=== PATIENT | female | born 1970 | race African-American/Black ===

== ENCOUNTER 2019-10-16 16:04 | Inpatient (IN) | payer SELFPAY ==
[~2019-10-16] VITALS: Ht 157.5 cm; Wt 74.4 kg
[2019-10-16 17:51] LABS: CHLORIDE 110 mEq/L (98-107)
[2019-10-16 17:56] LABS: ETHANOL BLOOD < 10 mg/dL
[2019-10-16 17:57] LABS: LDL CHOLESTEROL 162 mg/dL (5-100)
[2019-10-16 18:05] LABS: INR 0.9; PROTHROMBIN TIME 10.1 sec (9.6-11.0)
[2019-10-16 18:13] LABS: BASOPHILS % 0.6 % (0.0-2.0); EOSINOPHILS % 0.5 % (0.0-5.0); HEMATOCRIT. 41.4 % (36.0-48.0); HEMOGLOBIN. 13.9 g/dL (12.0-16.0); LYMPHOCYTES % 30.6 % (20.0-50.0); MEAN CORPUSCULAR HEMOGLOBIN 28.8 pg (28.0-32.0); MEAN CORPUSCULAR VOLUME 85.4 fL (81.0-99.0); MEAN PLATELET VOLUME 8.5 fl (7.4-10.4); MONOCYTES % 4.9 % (2.0-8.0); NEUTROPHILS % 63.4 % (40.0-76.0); PLATELET 357 x1000/uL (130-400); RED BLOOD CELL COUNT 4.84 mill/uL (4.2-5.4); RED CELL DISTRIBUTION WIDTH 13.7 % (11.6-14.6)
[2019-10-16] MEDS ORDERED: IOHEXOL-350 100 ML BOTTLE ONE (18:41)
[2019-10-16] MEDS ORDERED: ACETAMINOPHEN 650MG/20.3ML UDC GT PRN ×2 (21:45)
[2019-10-16] MEDS ORDERED: ONDANSETRON HCL 4MG/2ML INJ IV PRN (21:45)
[2019-10-16] MEDS ORDERED: ACETAMINOPHEN 325MG TABLET PO PRN (21:45)
[2019-10-16] MEDS ORDERED: ACETAMINOPHEN 650MG SUPP PR PRN (21:45)
[2019-10-16] MEDS ORDERED: HYDROCODONE/ACETAMINOPHEN 5/325MG TABLET PO PRN (22:45)
[2019-10-16] MEDS ORDERED: KETOROLAC 30MG/ML VIAL IV PRN (22:45)
[2019-10-17] VITALS (7 sets, daily range): BP systolic 113–168; BP diastolic 65–89
[2019-10-17] MEDS ORDERED: CEPHALEXIN 250 MG/5 ML 100ML PO SCH
[2019-10-17] MEDS ORDERED: LOSA100T32 MT (02:49)
[2019-10-17 05:10] LABS: BASOPHILS % 0.5 % (0.0-2.0); EOSINOPHILS % 0.9 % (0.0-5.0); HEMOGLOBIN. 13.1 g/dL (12.0-16.0); LYMPHOCYTES % 36.4 % (20.0-50.0); MEAN CORPUSCULAR HEMOGLOBIN 28.4 pg (28.0-32.0); MEAN CORPUSCULAR VOLUME 86.6 fL (81.0-99.0); MEAN PLATELET VOLUME 8.8 fl (7.4-10.4); MONOCYTES % 5.6 % (2.0-8.0); NEUTROPHILS % 56.6 % (40.0-76.0); PLATELET 325 x1000/uL (130-400); RED BLOOD CELL COUNT 4.62 mill/uL (4.2-5.4); RED CELL DISTRIBUTION WIDTH 14.3 % (11.6-14.6)
[2019-10-17 05:21] LABS: CHLORIDE 109 mEq/L (98-107)
[2019-10-17 05:31] LABS: LDL CHOLESTEROL 149 mg/dL (5-100)
[2019-10-17 05:33] LABS: HDL CHOLESTEROL 35 mg/dL (40-59)
[2019-10-17] MEDS: AMLODIPINE 10MG TABLET PO SCH (05:44)
[2019-10-17] MEDS: SODIUM CHLORIDE 0.9% INJ 3ML FLUSH IVF SCH ×3 (05:44→21:33)
[2019-10-17] MEDS ORDERED: INFLUENZA VIRUS VACCINE(AFLURIA) 0.5ML SYR IM ONE (08:00)
[2019-10-17] MEDS ORDERED: ENOXAPARIN 40MG/0.4ML SYR SUBCUT SCH (09:00)
[2019-10-17] MEDS ORDERED: ASPIRIN 81MG EC TABLET PO SCH (09:00)
[2019-10-17 13:02] LABS: *AMPHETAMINES SCREEN URINE NEGATIVE (NEGATIVE); *BARBITURATES SCREEN URINE NEGATIVE (NEGATIVE); *BENZODIAZEPINES SCREEN URINE NEGATIVE (NEGATIVE); *COCAINE SCREEN URINE NEGATIVE (NEGATIVE); OPIATES URINE SCREEN NEGATIVE (NEGATIVE)
[2019-10-17 13:03] LABS: CANNABINOID URINE SCREEN NEGATIVE (NEGATIVE); PHENCYCLIDINE URINE SCREEN NEGATIVE (NEGATIVE)
[2019-10-17 13:39] LABS: CLARITY URINE CLOUDY (CLEAR); COLOR URINE YELLOW (YELLOW); KETONES URINE NEGATIVE (NEGATIVE); LEUKOCYTE ESTERASE URINE 2+ (NEGATIVE); NITRITE URINE NEGATIVE (NEGATIVE); OCCULT BLOOD URINE 1+ (NEGATIVE); PROTEIN URINE TRACE (NEGATIVE); SPECIFIC GRAVITY URINE 1.042 (1.005-1.030); UROBILINOGEN URINE 0.2 E.U./dL (0.2-1.0)
[2019-10-17] MEDS ORDERED: POTASSIUM CHLORIDE 20MEQ TABLET SR PO NR (16:45)
[2019-10-17 16:55] LABS: METHADONE URINE SCREEN NEGATIVE (NEGATIVE)
[2019-10-17] MEDS ORDERED: ATORVASTATIN CALCIUM 10MG TABLET PO SCH (21:00)
[2019-10-17] MEDS: LEVOFLOXACIN 500MG TABLET PO SCH (21:31)
[2019-10-17] MEDS: ATORVASTATIN CALCIUM 40MG TABLET PO SCH (21:31)
[2019-10-18] VITALS: BP 118/77
[2019-10-18 04:00] VITALS: BP 104/67
[2019-10-18] MEDS: SODIUM CHLORIDE 0.9% INJ 3ML FLUSH IVF SCH ×2 (06:01→21:39)
[2019-10-18 08:00] VITALS: BP 119/65
[2019-10-18] MEDS ORDERED: CEPHALEXIN 250 MG/5 ML 100ML PO SCH (09:00)
[2019-10-18 09:18] LABS: *AMPHETAMINES SCREEN URINE NEGATIVE (NEGATIVE); *BARBITURATES SCREEN URINE NEGATIVE (NEGATIVE); *BENZODIAZEPINES SCREEN URINE NEGATIVE (NEGATIVE); *COCAINE SCREEN URINE NEGATIVE (NEGATIVE); METHADONE URINE SCREEN NEGATIVE (NEGATIVE)
[2019-10-18 09:19] LABS: CANNABINOID URINE SCREEN NEGATIVE (NEGATIVE); OPIATES URINE SCREEN NEGATIVE (NEGATIVE); PHENCYCLIDINE URINE SCREEN NEGATIVE (NEGATIVE)
[2019-10-18] MEDS: AMLODIPINE 10MG TABLET PO SCH (09:51)
[2019-10-18] MEDS: LEVOFLOXACIN 500MG TABLET PO SCH (10:17)
[2019-10-18 11:12] LABS: BASOPHILS % 0.7 % (0.0-2.0); HEMATOCRIT. 39.7 % (36.0-48.0); HEMOGLOBIN. 13.5 g/dL (12.0-16.0); MEAN CORPUSCULAR HEMOGLOBIN 28.9 pg (28.0-32.0); MEAN CORPUSCULAR VOLUME 85.3 fL (81.0-99.0); MEAN PLATELET VOLUME 8.5 fl (7.4-10.4); MONOCYTES % 5.3 % (2.0-8.0); PLATELET 302 x1000/uL (130-400); RED BLOOD CELL COUNT 4.66 mill/uL (4.2-5.4); RED CELL DISTRIBUTION WIDTH 13.9 % (11.6-14.6)
[2019-10-18 11:26] LABS: CHLORIDE 109 mEq/L (98-107)
[2019-10-18 12:00] VITALS: BP 137/79
[2019-10-18 16:00] VITALS: BP 112/54
[2019-10-18 20:00] VITALS: BP 118/75
[2019-10-18] MEDS: ATORVASTATIN CALCIUM 40MG TABLET PO SCH (21:38)
[2019-10-19] VITALS: BP 104/58
[2019-10-19 04:00] VITALS: BP 104/48
[2019-10-19 08:00] VITALS: BP 100/53
[2019-10-19] MEDS ORDERED: SODIUM BICARBONATE 4% (2.4MEQ) 5ML VIAL IV ONE (09:30)
[2019-10-19] MEDS ORDERED: LIDOCAINE HCL 1% 20ML VIAL (Pyxis) INJ ONE (09:30)
[2019-10-19 12:00] VITALS: BP 142/67
[2019-10-19 12:16] LABS: GLUCOSE CSF 50 mg/dL (41-75)
[2019-10-19] MEDS: LEVOFLOXACIN 500MG TABLET PO SCH (13:44)
[2019-10-19] MEDS: SODIUM CHLORIDE 0.9% INJ 3ML FLUSH IVF SCH ×2 (14:00→21:01)
[2019-10-19 16:00] VITALS: BP 109/64
[2019-10-19 20:00] VITALS: BP 140/76
[2019-10-19] MEDS: ATORVASTATIN CALCIUM 40MG TABLET PO SCH (21:00)
[2019-10-20] VITALS: BP 127/68
[2019-10-20 04:00] VITALS: BP 135/69
[2019-10-20 08:00] VITALS: BP 116/55
[2019-10-20] MEDS ORDERED: LIP40 PO (10:28)
[2019-10-20] MEDS ORDERED: ASPI-1497 MT (10:29)
[2019-10-20] MEDS ORDERED: LEVO500T2 MT (10:32)
[2019-10-20] MEDS: LEVOFLOXACIN 500MG TABLET PO SCH (10:53)
[2019-10-20 12:00] VITALS: BP 125/57
[2019-10-20 13:32] VITALS: BP 125/57
== END 2019-10-20 14:53 | disposition home or self-care (01) | DRG 199 ==
LOC: ER 16:04 → EDBEDREQ 21:05 → EDBEDREQTM 21:05 → ENRESERV 23:44 → 7WST 10-17 01:47
PROVIDERS: ADMIT Family Medicine; ATTEND Family Medicine
PROC: 009U3ZX Drainage of Spinal Canal, Percutaneous Approach, Diagnostic (ICD-10-PCS; principal; 2019-10-19)
PROC: B01B1ZZ Fluoroscopy of Spinal Cord using Low Osmolar Contrast (ICD-10-PCS; 2019-10-19)
DX: I16.1 Hypertensive emergency (principal); E78.5 Hyperlipidemia, unspecified; F32.9 Major depressive disorder, single episode, unspecified; F41.9 Anxiety disorder, unspecified; I10 Essential (primary) hypertension; J98.11 Atelectasis; R29.810 Facial weakness; Z88.0 Allergy status to penicillin; Z79.899 Other long term (current) drug therapy; Z90.710 Acquired absence of both cervix and uterus
CPT/HCPCS: 36415; 62270; 70150; 70496; 70551; 71045; 72141; 77003; 80053; 80061; 80305; 80320; 81003; 82040; 82042; 82784; 82945; 82962; 83516; 83721; 83873; 83916; 84157; 84484; 85025; 85651; 86256; 86592; 86635; 86663; 87070; 87077; 87186; 87802; 87899; 90686; 93005; 93306; 93880; 97116; 97162; 99285; J1650; J1885; J3490; Q9967; G0480

== ENCOUNTER 2020-01-18 10:11 | Emergency (ER) | payer MEDICAID, SELFPAY ==
[~2020-01-18] VITALS: Ht 157.5 cm; Wt 68.0 kg
[~2020-01-18 10:11] MED LIST: ASPI-1497 MT; LEVO500T2 MT; LIP40 PO; LOSA100T32 MT
[2020-01-18] MEDS ORDERED: SODIUM CHLORIDE 0.9% 1,000 ML IV ONE (10:25)
[2020-01-18] MEDS ORDERED: ONDANSETRON HCL 4MG/2ML INJ IV STA (10:25)
[2020-01-18] MEDS ORDERED: MORPHINE SULFATE 4 MG/ML CPJ (NOT FOR IM USE) IV STA (10:25)
[2020-01-18 11:11] LABS: BASOPHILS % 0.5 % (0.0-2.0); EOSINOPHILS % 0.7 % (0.0-5.0); HEMATOCRIT. 41.2 % (36.0-48.0); LYMPHOCYTES % 20.2 % (20.0-50.0); MEAN CORPUSCULAR HEMOGLOBIN 29.2 pg (28.0-32.0); MEAN PLATELET VOLUME 8.5 fl (7.4-10.4); MONOCYTES % 3.5 % (2.0-8.0); NEUTROPHILS % 75.1 % (40.0-76.0); PLATELET 406 x1000/uL (130-400); RED BLOOD CELL COUNT 4.79 mill/uL (4.2-5.4); RED CELL DISTRIBUTION WIDTH 14.6 % (11.6-14.6)
[2020-01-18 11:13] LABS: CLARITY URINE CLEAR (CLEAR); COLOR URINE YELLOW (YELLOW); KETONES URINE NEGATIVE (NEGATIVE); LEUKOCYTE ESTERASE URINE TRACE (NEGATIVE); NITRITE URINE NEGATIVE (NEGATIVE); OCCULT BLOOD URINE NEGATIVE (NEGATIVE); PROTEIN URINE NEGATIVE (NEGATIVE); SPECIFIC GRAVITY URINE 1.007 (1.005-1.030); UROBILINOGEN URINE 0.2 E.U./dL (0.2-1.0)
[2020-01-18 11:15] LABS: CHLORIDE 106 mEq/L (98-107)
[2020-01-18] MEDS ORDERED: IOHEXOL-300 50 ML BOTTLE IV ONE (12:18)
[2020-01-18] MEDS ORDERED: IOHEXOL-300 100 ML BOTTLE ONE (12:19)
[2020-01-18 15:33] VITALS: BP 135/79
[2020-01-25] MEDS ORDERED: TRIA1TAB92 PO (01:48)
[2020-01-25] MEDS ORDERED: PANT40TA4 PO (01:48)
[2020-01-25] MEDS ORDERED: ESCI5SOL2 PO (01:48)
[2020-01-25] MEDS ORDERED: MECL-159 PO (01:48)
== END 2020-01-18 16:03 | disposition home or self-care (01) ==
LOC: ER 10:24
DX: K80.20 Calculus of gallbladder without cholecystitis without obstruction (principal); I10 Essential (primary) hypertension; Z88.0 Allergy status to penicillin; Z79.899 Other long term (current) drug therapy; Z79.82 Long term (current) use of aspirin; Z90.710 Acquired absence of both cervix and uterus
CPT/HCPCS: 36415; 74177; 80053; 81003; 81025; 83690; 85025; 96374; 96375; 99285; J2270; J2405; J7030; Q9967

== ENCOUNTER 2020-03-31 12:05 | Emergency (ER) | payer OTHER ==
[~2020-03-31] VITALS: Ht 157.5 cm; Wt 78.5 kg
[~2020-03-31 12:05] MED LIST changes: +ATOR20TA PO; +ESCI5SOL2 PO; -LEVO500T2 MT; -LIP40 PO; -LOSA100T32 MT; +MECL-159 PO; +PANT40TA4 PO; +TRIA1TAB92 PO
[2020-03-31 12:16] VITALS: BP 150/100
[2020-03-31] MEDS ORDERED: MECLIZINE 25MG TABLET PO ONE (12:45)
[2020-03-31] MEDS ORDERED: ONDANSETRON HCL 4MG/2ML INJ IV ONE (12:45)
[2020-03-31 14:16] LABS: BASOPHILS % 0.8 % (0.0-2.0); EOSINOPHILS % 0.2 % (0.0-5.0); HEMATOCRIT. 41.2 % (36.0-48.0); HEMOGLOBIN. 13.7 g/dL (12.0-16.0); LYMPHOCYTES % 16.7 % (20.0-50.0); MEAN CORPUSCULAR HEMOGLOBIN 28.8 pg (28.0-32.0); MEAN CORPUSCULAR VOLUME 86.4 fL (81.0-99.0); MEAN PLATELET VOLUME 8.1 fl (7.4-10.4); MONOCYTES % 2.7 % (2.0-8.0); NEUTROPHILS % 79.6 % (40.0-76.0); PLATELET 360 x1000/uL (130-400); RED BLOOD CELL COUNT 4.77 mill/uL (4.2-5.4); RED CELL DISTRIBUTION WIDTH 14.1 % (11.6-14.6)
[2020-03-31 14:22] LABS: CHLORIDE 107 mEq/L (98-107)
== END 2020-03-31 17:16 | disposition home or self-care (01) ==
LOC: ER 12:05
DX: R42 Dizziness and giddiness (principal); R11.10 Vomiting, unspecified; I10 Essential (primary) hypertension; Z90.49 Acquired absence of other specified parts of digestive tract; Z79.899 Other long term (current) drug therapy; Z88.0 Allergy status to penicillin
CPT/HCPCS: 36415; 70450; 71045; 76705; 80053; 83880; 84484; 85025; 93005; 96374; 99285; J2405; J8597

== ENCOUNTER 2020-05-27 14:05 | Emergency (ER) | payer OTHER ==
[~2020-05-27] VITALS: Ht 162.6 cm; Wt 73.0 kg
[2020-05-27] MEDS ORDERED: ONDANSETRON HCL 4MG/2ML INJ IV STA (14:13)
[2020-05-27] MEDS ORDERED: SODIUM CHLORIDE 0.9% 1,000 ML IV ONE (14:15)
[2020-05-27 15:07] VITALS: BP 173/88
[2020-05-27 15:22] LABS: BASOPHILS % 0.6 % (0.0-2.0); EOSINOPHILS % 0.5 % (0.0-5.0); HEMATOCRIT. 39.6 % (36.0-48.0); HEMOGLOBIN. 13.1 g/dL (12.0-16.0); LYMPHOCYTES % 38.9 % (20.0-50.0); MEAN CORPUSCULAR HEMOGLOBIN 28.1 pg (28.0-32.0); MEAN CORPUSCULAR VOLUME 85.1 fL (81.0-99.0); MEAN PLATELET VOLUME 8.3 fl (7.4-10.4); MONOCYTES % 5.3 % (2.0-8.0); NEUTROPHILS % 54.7 % (40.0-76.0); PLATELET 327 x1000/uL (130-400); RED BLOOD CELL COUNT 4.66 mill/uL (4.2-5.4); RED CELL DISTRIBUTION WIDTH 14.1 % (11.6-14.6)
[2020-05-27 15:33] LABS: PROTHROMBIN TIME 10.6 sec (9.6-11.0)
[2020-05-27 15:35] LABS: CLARITY URINE CLEAR (CLEAR); COLOR URINE YELLOW (YELLOW); KETONES URINE NEGATIVE (NEGATIVE); LEUKOCYTE ESTERASE URINE 2+ (NEGATIVE); NITRITE URINE NEGATIVE (NEGATIVE); OCCULT BLOOD URINE TRACE (NEGATIVE); PH URINE 8.5 (4.5-8.0); PROTEIN URINE NEGATIVE (NEGATIVE); SPECIFIC GRAVITY URINE 1.009 (1.005-1.030); UROBILINOGEN URINE 0.2 E.U./dL (0.2-1.0)
[2020-05-27 15:37] LABS: CHLORIDE 110 mEq/L (98-107)
== END 2020-05-27 17:12 | disposition home or self-care (01) ==
LOC: ER 14:17
DX: R11.2 Nausea with vomiting, unspecified (principal); R61 Generalized hyperhidrosis; I10 Essential (primary) hypertension; Z90.49 Acquired absence of other specified parts of digestive tract; Z88.0 Allergy status to penicillin; Z79.899 Other long term (current) drug therapy
CPT/HCPCS: 36415; 80053; 81003; 83605; 83690; 84484; 85025; 85610; 93005; 96361; 96374; 99284; J2405; J7030

== ENCOUNTER 2021-10-03 12:57 | Emergency (ER) | payer OTHER ==
[~2021-10-03] VITALS: Ht 162.6 cm; Wt 73.0 kg
[~2021-10-03 12:57] MED LIST changes: -PANT40TA4 PO; +PANT40TA51 PO
[2021-10-03] MEDS ORDERED: ACETAMINOPHEN 325MG TABLET PO ONE (13:30)
[2021-10-03 15:01] LABS: BASOPHILS % 0.5 % (0.0-2.0); EOSINOPHILS % 0.3 % (0.0-5.0); HEMATOCRIT. 39.6 % (36.0-48.0); HEMOGLOBIN. 13.3 g/dL (12.0-16.0); MEAN CORPUSCULAR HEMOGLOBIN 27.5 pg (28.0-32.0); MEAN CORPUSCULAR VOLUME 81.9 fL (81.0-99.0); MONOCYTES % 4.2 % (2.0-8.0); PLATELET 345 x1000/uL (130-400); RED BLOOD CELL COUNT 4.83 mill/uL (4.2-5.4); RED CELL DISTRIBUTION WIDTH 14.9 % (11.6-14.6)
[2021-10-03 15:09] LABS: CHLORIDE 108 mEq/L (98-107)
[2021-10-03] MEDS ORDERED: LORAZEPAM 0.5MG TABLET PO ONE (15:30)
[2021-10-03] MEDS ORDERED: IBUP-2029 MT (16:24)
[2021-10-03 17:58] VITALS: BP 127/75
== END 2021-10-03 17:59 | disposition home or self-care (01) ==
LOC: ER 13:04
DX: R07.89 Other chest pain (principal); I10 Essential (primary) hypertension; Z20.822 Contact with and (suspected) exposure to COVID-19; Z80.0 Family history of malignant neoplasm of digestive organs
CPT/HCPCS: 36415; 71045; 80053; 83880; 84484; 85025; 87426; 99284

== ENCOUNTER 2021-11-12 13:51 | Emergency (ER) | payer OTHER ==
[~2021-11-12] VITALS: Ht 167.6 cm; Wt 70.0 kg
[~2021-11-12 13:51] MED LIST changes: +IBUP-2029 MT
[2021-11-12 14:57] LABS: BASOPHILS % 0.4 % (0.0-2.0); EOSINOPHILS % 0.1 % (0.0-5.0); HEMATOCRIT. 41.5 % (36.0-48.0); HEMOGLOBIN. 13.7 g/dL (12.0-16.0); LYMPHOCYTES % 16.1 % (20.0-50.0); MEAN CORPUSCULAR HEMOGLOBIN 27.2 pg (28.0-32.0); MEAN CORPUSCULAR VOLUME 82.5 fL (81.0-99.0); MONOCYTES % 3.3 % (2.0-8.0); NEUTROPHILS % 80.1 % (40.0-76.0); PLATELET 366 x1000/uL (130-400); RED BLOOD CELL COUNT 5.03 mill/uL (4.2-5.4); RED CELL DISTRIBUTION WIDTH 15.2 % (11.6-14.6)
[2021-11-12 15:01] LABS: CLARITY URINE CLOUDY (CLEAR); COLOR URINE YELLOW (YELLOW); KETONES URINE NEGATIVE (NEGATIVE); LEUKOCYTE ESTERASE URINE 2+ (NEGATIVE); NITRITE URINE NEGATIVE (NEGATIVE); OCCULT BLOOD URINE 1+ (NEGATIVE); PROTEIN URINE NEGATIVE (NEGATIVE); SPECIFIC GRAVITY URINE 1.007 (1.005-1.030); UROBILINOGEN URINE 0.2 E.U./dL (0.2-1.0)
[2021-11-12 15:04] LABS: CHLORIDE 110 mEq/L (98-107)
[2021-11-12] MEDS ORDERED: METOCLOPRAMIDE HCL 10MG/2ML VIAL IV ONE (15:15)
[2021-11-12] MEDS ORDERED: DIPHENHYDRAMINE 50MG/ML VIAL IV ONE ×2 (15:15→16:30)
[2021-11-12] MEDS ORDERED: SODIUM CHLORIDE 0.9% 1,000 ML IV ONE ×2 (15:15→16:45)
[2021-11-12 15:30] LABS: PROTHROMBIN TIME 10.9 sec (9.6-11.0)
[2021-11-12] MEDS ORDERED: NITR-87 MT (16:59)
[2021-11-12 18:40] VITALS: BP 162/92
== END 2021-11-12 19:00 | disposition home or self-care (01) ==
LOC: ER 13:51
DX: R51.9 Headache, unspecified (principal); N39.0 Urinary tract infection, site not specified; I10 Essential (primary) hypertension; Z88.0 Allergy status to penicillin
CPT/HCPCS: 36415; 70450; 71045; 80053; 81003; 83605; 83690; 83880; 84484; 85025; 85610; 87077; 87086; 87186; 93005; 96361; 96374; 96375; 96376; 99285; J1200; J2765; J7030

== ENCOUNTER 2021-12-31 11:54 | Emergency (ER) | payer OTHER ==
[~2021-12-31] VITALS: Ht 157.5 cm; Wt 82.0 kg
[~2021-12-31 11:54] MED LIST changes: +NITR-87 MT
[2021-12-31 12:00] VITALS: BP 172/99
[2021-12-31 13:16] LABS: HCG SCREEN NEGATIVE
[2021-12-31 13:37] LABS: *AMPHETAMINES SCREEN URINE NEGATIVE (NEGATIVE); *BARBITURATES SCREEN URINE NEGATIVE (NEGATIVE); *BENZODIAZEPINES SCREEN URINE PRESUMTIVE POSITIVE (NEGATIVE); *COCAINE SCREEN URINE NEGATIVE (NEGATIVE); CANNABINOID URINE SCREEN NEGATIVE (NEGATIVE); METHADONE URINE SCREEN NEGATIVE (NEGATIVE); OPIATES URINE SCREEN NEGATIVE (NEGATIVE); PHENCYCLIDINE URINE SCREEN NEGATIVE (NEGATIVE)
[2021-12-31 14:20] LABS: BASOPHILS % 0.6 % (0.0-2.0); EOSINOPHILS % 0.3 % (0.0-5.0); HEMATOCRIT. 39.1 % (36.0-48.0); HEMOGLOBIN. 13.1 g/dL (12.0-16.0); LYMPHOCYTES % 20.9 % (20.0-50.0); MEAN CORPUSCULAR VOLUME 83.4 fL (81.0-99.0); MEAN PLATELET VOLUME 8.5 fl (7.4-10.4); MONOCYTES % 4.1 % (2.0-8.0); NEUTROPHILS % 74.1 % (40.0-76.0); PLATELET 335 x1000/uL (130-400); RED BLOOD CELL COUNT 4.68 mill/uL (4.2-5.4); RED CELL DISTRIBUTION WIDTH 14.7 % (11.6-14.6)
[2021-12-31 14:24] LABS: CHLORIDE 111 mEq/L (98-107)
[2021-12-31] MEDS ORDERED: AMLODIPINE 5MG TABLET PO SCH (15:30)
[2021-12-31] MEDS ORDERED: CLOPIDOGREL 75MG TABLET PO SCH (15:30)
== END 2021-12-31 17:15 | disposition left against medical advice (07) ==
LOC: ER 11:54
DX: R07.89 Other chest pain (principal); J45.909 Unspecified asthma, uncomplicated; I10 Essential (primary) hypertension; Z90.49 Acquired absence of other specified parts of digestive tract; Z79.899 Other long term (current) drug therapy
CPT/HCPCS: 36415; 71045; 80053; 80305; 83880; 84484; 84703; 85025; 85379; 93005; 99285

== ENCOUNTER 2022-07-15 13:07 | Emergency (ER) | payer OTHER ==
[~2022-07-15] VITALS: Ht 157.5 cm; Wt 72.6 kg
[2022-07-15 13:12] VITALS: BP 156/84
[2022-07-15] MEDS ORDERED: LORAZEPAM 0.5MG TABLET PO ONE (15:45)
[2022-07-15] MEDS ORDERED: LORAZEPAM 1MG TABLET PO ONE (17:00)
[2022-07-15] MEDS ORDERED: ALPR-341 MT (17:22)
== END 2022-07-15 17:46 | disposition home or self-care (01) ==
LOC: ER 13:07
DX: F41.9 Anxiety disorder, unspecified (principal)
CPT/HCPCS: 99283

== ENCOUNTER 2023-07-03 12:54 | Emergency (ER) | payer OTHER ==
[~2023-07-03] VITALS: Ht 160 cm; Wt 73.0 kg
[~2023-07-03 12:54] MED LIST changes: +ALPR-341 MT; -MECL-159 PO; +MECL-299 PO
[2023-07-03 13:07] VITALS: BP 183/93; PULSE 92; RESP 18; TEMP 98.1; O2SAT 99
== END 2023-07-03 18:30 | disposition left against medical advice (07) ==
LOC: ER 13:44
DX: F41.9 Anxiety disorder, unspecified (principal); Z53.21 Procedure and treatment not carried out due to patient leaving prior to being seen by health care provider
CPT/HCPCS: 99281

== ENCOUNTER 2023-10-03 14:14 | Emergency (ER) | payer OTHER ==
[~2023-10-03] VITALS: Ht 165.1 cm; Wt 85.0 kg
[2023-10-03 14:18] VITALS: O2SAT 100
[2023-10-03] MEDS: LABETALOL 5MG/ML SYR 20 MG/4 ML SYRINGE IV PRN (14:51)
[2023-10-03] MEDS: METOCLOPRAMIDE HCL 10MG/2ML VIAL IV ONE (14:51)
[2023-10-03] MEDS: IOHEXOL-350 100 ML BOTTLE ONE (15:03)
[2023-10-03 15:32] LABS: CLARITY URINE CLEAR (CLEAR); COLOR URINE YELLOW (YELLOW); GLUCOSE URINE NEGATIVE (NEGATIVE); KETONES URINE NEGATIVE (NEGATIVE); LEUKOCYTE ESTERASE URINE NEGATIVE (NEGATIVE); NITRITE URINE NEGATIVE (NEGATIVE); OCCULT BLOOD URINE NEGATIVE (NEGATIVE); PH URINE 7.5 (4.5-8.0); PROTEIN URINE NEGATIVE (NEGATIVE); SPECIFIC GRAVITY URINE 1.003 (1.005-1.030); UROBILINOGEN URINE 0.2 E.U./dL (0.2-1.0)
[2023-10-03 15:37] LABS: BASOPHILS % 0.8 % (0.0-2.0); EOSINOPHILS % 0.3 % (0.0-5.0); HEMATOCRIT. 39.3 % (36.0-48.0); HEMOGLOBIN. 13.1 g/dL (12.0-16.0); MEAN CORPUSCULAR HEMOGLOBIN 28.7 pg (28.0-32.0); MEAN CORPUSCULAR HGB CONC 33.3 g/dL (31.0-37.0); MEAN CORPUSCULAR VOLUME 86.2 fL (81.0-99.0); MEAN PLATELET VOLUME 9.1 fl (7.4-10.4); NEUTROPHILS % 67.9 % (40.0-76.0); PLATELET 285 x1000/uL (130-400); RED BLOOD CELL COUNT 4.56 mill/uL (4.2-5.4); RED CELL DISTRIBUTION WIDTH 14.8 % (11.6-14.6); WHITE BLOOD COUNT 11.2 x1000/uL (4.5-11.0)
[2023-10-03 15:43] LABS: *AMPHETAMINES SCREEN URINE NEGATIVE (NEGATIVE); *BARBITURATES SCREEN URINE NEGATIVE (NEGATIVE); *BENZODIAZEPINES SCREEN URINE NEGATIVE (NEGATIVE); *COCAINE SCREEN URINE NEGATIVE (NEGATIVE); CANNABINOID URINE SCREEN NEGATIVE (NEGATIVE); ECSTASY MDMA SCREEN URINE NEGATIVE (NEGATIVE); METHADONE URINE SCREEN Neg (NEGATIVE); OPIATES URINE SCREEN NEGATIVE (NEGATIVE); PHENCYCLIDINE URINE SCREEN NEGATIVE (NEGATIVE)
[2023-10-03 15:46] LABS: PROTHROMBIN TIME 10.7 sec (9.6-11.0)
[2023-10-03 15:49] LABS: ALANINE AMINOTRANSFERASE 21 IU/L (10-49); ALBUMIN 4.4 g/dL (3.2-4.8); ASPARTATE AMINOTRANSFERASE 24 IU/L (<34); BILIRUBIN TOTAL 0.7 mg/dL (0.1-1.0); CARBON DIOXIDE 25 mEq/L (21-32); CHLORIDE 108 mEq/L (98-107); CREATINE KINASE 49 IU/L (34-145); CREATININE 0.6 mg/dL (0.6-1.0); GLUCOSE 91 mg/dL (70-105); POTASSIUM 3.6 mEq/L (3.5-5.1); PROTEIN TOTAL 7.6 g/dL (6.0-8.3); SODIUM 139 mEq/L (136-145); UREA NITROGEN BLOOD 11 mg/dL (9-23)
[2023-10-03 15:52] LABS: HCG SCREEN NEGATIVE
[2023-10-03 15:55] LABS: ETHANOL BLOOD < 10 mg/dL (<10); TROPONIN I HIGH SENSITIVITY < 4 ng/L (3.0-34)
[2023-10-03] MEDS: KETOROLAC 30MG/ML VIAL IV ONE (15:58)
[2023-10-03] MEDS: DIPHENHYDRAMINE 50MG/ML VIAL IV ONE (15:58)
[2023-10-03 20:20] VITALS: BP 150/92; PULSE 89; RESP 13; TEMP 98.3
== END 2023-10-03 22:10 | disposition short-term general hospital (02) ==
LOC: ER 14:14 → CANBEDREQ 18:32 → ER 22:10
DX: R51.9 Headache, unspecified (principal); I10 Essential (primary) hypertension; R20.0 Anesthesia of skin; F41.9 Anxiety disorder, unspecified; Z90.49 Acquired absence of other specified parts of digestive tract; Z88.0 Allergy status to penicillin; Z88.8 Allergy status to other drugs, medicaments and biological substances
CPT/HCPCS: 80053; 80305; 81003; 80320; 82550; 84703; 85025; 85610; 86850; 86900; 86901; 84484; 36415; 71045; 70496; 70498; 70450; 93005; 96374; 96375; 99291; Q9967; J1200; J1885; J3490; J2765; Z7610; G0480